=== PATIENT | male | born 1995 | race Caucasian/White ===

== ENCOUNTER 2017-05-05 08:19 | Day surgery (SDC) | payer OTHER ==
[2017-05-05 08:50] VITALS: BMI 27.6
[2017-05-05] MEDS ORDERED: DEXAMETHASONE SOD PHOSPHATE/PF 10 MG/ML SDV ONE (09:04)
[2017-05-05] MEDS ORDERED: MIDAZOLAM HCL 2 MG/2 ML SINGLE DOSE VIAL ONE (09:04)
[2017-05-05] MEDS ORDERED: BUPIVACAINE HCL/PF (5 MG/ML) 30 ML VIAL IJ ONE (09:04)
[2017-05-05] MEDS ORDERED: ROPIVACAINE HCL 0.5% 30ML VIAL ONE (09:05)
[2017-05-05] MEDS ORDERED: ceFAZolin SODIUM 1 GM VIAL ONE (09:24)
[2017-05-05] MEDS ORDERED: DEXAMETHASONE SOD PHOSPHATE 4 MG/1 ML VIAL ONE (09:24)
[2017-05-05] MEDS ORDERED: LIDOCAINE HCL/PF 2% SDV 5ML VIAL ONE (09:24)
[2017-05-05] MEDS ORDERED: PROPOFOL 20 ML ONE ×2 (09:24)
[2017-05-05] MEDS ORDERED: ONDANSETRON 4 MG/2 ML VIAL ONE (09:24)
[2017-05-05] MEDS ORDERED: SUCCINYLCHOLINE CHLORIDE 200 MG/10 ML VIAL ONE (09:24)
[2017-05-05] MEDS ORDERED: EPINEPHrine 1:1,000 1 MG/1 ML - 30ML VIAL (INJECTION) ONE (11:16)
[2017-05-05] MEDS ORDERED: ONDANSETRON 4 MG/2 ML VIAL IVPUSH PRN (12:41)
[2017-05-05] MEDS ORDERED: oxyCODONE HCL 5 MG TABLET PO PRN ×2 (12:41)
[2017-05-05] MEDS ORDERED: PROMETHAZINE HCL 25 MG/1 ML VIAL IVPUSH PRN (12:41)
[2017-05-05] MEDS ORDERED: LACTATED RINGERS SOLUTION 1,000 ML IV SCH (12:45)
[2017-05-05 16:10] VITALS: TEMP 98
[2017-05-05 16:22] VITALS: BP 121/77; PULSE 85
--- NOTE | 2017-05-05 16:24 | OP ---
Operative Note - Note: Operative Date: 05/05/17 Pre-Operative Diagnosis: Right Anterior cruciate ligament tear Operation: Right Arthroscopic Anterior cruciate ligament reconstruction with hamstring autograft Implants: tight rope and endo button Post-Operative Diagnosis: Same as Pre-op Surgeon: Kristopher Saavedra Document Management Technician: Marilu Costello Anesthesiologist/SHIPSMITH: Primitivo Davis Anesthesia: General, MAC (with block) Estimated Blood Loss (mls): 50 Fluid Volume Replaced (mls): 1,200 Operative Report Dictated: Yes
--- NOTE | 2017-05-05 16:27 | SURG ---
Surgery Zigzag Tunnel Elastic Operator Note Zigzag Tunnel Elastic Operator: Marilu Costello PA-C Date of Service: 05/05/17 Diagnosis: Right Anterior cruciate ligament tear Procedure: Right Arthoscopic Anterior Ligament reconstruction with hamstring autograft I was present for the entirety of the operative procedure. For further detail, please refer to operative report. Visit type - Case Type Case Type: Scheduled Admission - Emergency Emergency Visit: No - New patient This patient is new to me today: Yes Date on this admission: 05/05/17 - Critical Care Critical Care patient: No
--- NOTE | 2017-05-05 16:53 | OP ---
DATE OF OPERATION: 05/05/2017 PREOPERATIVE DIAGNOSIS: Right knee anterior cruciate ligament rupture. POSTOPERATIVE DIAGNOSIS: Right knee anterior cruciate ligament rupture plus lateral meniscal tear. SURGEON: Kristopher Saavedra MD DISPLAY FABRICATOR: JUNIOR Barraza whose skillful assistance was necessary for the safe and timely performance of the procedure. Ms. Costello is a physician's boiler assistant operator. She was able to help with limb positioning, graft preparation, driving the camera, as well as the insertion of our orthopedic graft fixation hardware. ANESTHESIA: General plus regional. CONDITION: Postoperative condition stable. COMPLICATIONS: None. IMPLANTS: Arthrex TightRopes x2. INDICATIONS: This is a pleasant young gentleman who suffered an ACL rupture. Treatment options, including nonoperative versus operative management, were discussed. Operative risks were reviewed in detail, including bleeding, infection, neurovascular injury, need for further surgery, postoperative pain and stiffness, re-rupture, persistent instability, need for further surgery. We discussed medical risks, such as heart attack, stroke, DVT, PE and . We reviewed the postoperative rehabilitation protocol. We discussed DVT prophylaxis as well as antibiotic prophylaxis. I addressed all of the patient's questions and concerns, as well as his family's. They voiced understanding and elected to proceed. DESCRIPTION OF PROCEDURE: The patient was brought to the operating room, where general anesthesia was administered. He previously had been given a regional block in the preoperative holding area. The right lower extremity was then prepped and draped in the usual sterile fashion. A preoperative dose of antibiotics was given, and the usual time-out procedure was performed. Preoperative examination of his knee demonstrated a positive Mamie and positive pivot shift. In addition, there was noted to be some gapping of the lateral collateral ligament on stress testing. However, it had a firm endpoint. Gapping was borderline 1+ to 2+. In addition, there was mildly increased external rotation at 30 degrees of flexion. This was indicative of a partial posterolateral corner injury. The hamstring harvest was now initiated. An incision was planned out over the pes tendons. This was carried down through the skin and subcutaneous tissue. Blunt spreading to explore the sartorius fascia. Electrocautery was used to maintain hemostasis. The fascia was now split in line with the semitendinosus. A right-angle clamp was now used to retrieve the semitendinosus and it was stitched. A 15 blade was then used to elevate the semitendinosus off of the anterior surface of the tibia. The tendon was now finger dissected out from the surrounding soft tissue. Multiple bands to the gastrocnemius were released. The tendon stripper was now passed over the tendon and it was retrieved out of the body. The tendon was now prepared on the back table. Graft length was 290 mm. Graft diameter quadrupled was approximately 9 to 10 mm. The decision was made to perform a single tendon graft preparation. At this point the arthroscopic portals were marked out on the knee. The lateral portal was established using an 11 blade. The arthroscope was then passed into the knee. A diagnostic arthroscopy was performed. Examination of the patellofemoral joint demonstrated no lesions. Passing the arthroscope down to the notch demonstrated the ruptured ACL. The PCL was visualized to be intact. The arthroscope was now passed into the medial compartment. Here, under spinal needle localization, a medial portal was established. A probe was now passed and the medial compartment was examined. There were no meniscal tears seen. There were no articular cartilage lesions. The arthroscope was now passed into the lateral compartment. Here, there was a tear seen at the posterior horn of the body, extending up . Utilizing a meniscal biter and a shaver, this was debrided down to a stable base. No articular lesions were seen here. The arthroscope was now passed into the notch. Here, electrocautery as well as a shaver were used to debride the ACL remnant. At this point, with the graft completed, it was now 70 mm by 9.5. A femoral drill guide was inserted into the notch. It was positioned onto the lateral bifurcate ridge. A small incision was made distally in the femur and the trocar was passed down to the bone after blunt spreading, utilizing a curved clamp. The FlipCutter was now drilled into the knee. Positioning was verified and was satisfactory. The FlipCutter was now removed, the suture was passed and the drilling hardware was removed from the knee. Attention was now turned to the tibial side. Here, the drill guide was again inserted into the anatomic footprint of the ACL. Utilizing the incision from the hamstring harvest, the trocar was passed down into the bone. Again, the FlipCutter was drilled in, position was verified, and then a socket was created here as well. The femoral socket final size was 35 x 9.5 mm. The tibial socket was also 35 x 9.5 mm. The passing suture was now passed into the tibial side. Both sutures were now retrieved out through an enlarged lateral portal. The graft was now passed into the knee, passing the TightRope and button under direct visualization through the femoral socket to seat on the lateral femoral cortex. The graft was then toggled in by 20 mm. The tibial sutures were now passed and the graft was seated into the tibial socket. The knee was cycled now. The button was loaded onto the tibial side of the graft. The knee was positioned in 20 degrees of flexion. A posterior drawer was applied, and the TightRope was toggled down onto the tibial surface on the tibial side. The knee was now examined with a Mamie maneuver. It was now negative. The extra sutures were now tied and then cut. The toggling sutures were removed as well. The deep tissues were approximated using 0 Vicryl. The subcutaneous tissue was approximated using 2-0 Vicryl. The skin was closed using 3-0 nylon. Sterile dressings were placed. The tourniquet was let down after 93 minutes. The patient was extubated and transferred to the recovery room in stable condition. вИан [id number]
== END 2017-05-05 14:30 | disposition home or self-care (01) ==
LOC: FASU 08:19
PROVIDERS: ATTEND Orthopaedic Surgery Sports Medicine
PROC: 0LBN0ZZ Excision of Right Lower Leg Tendon, Open Approach (ICD-10-PCS; 2017-05-05)
PROC: 0SBC4ZZ Excision of Right Knee Joint, Percutaneous Endoscopic Approach (ICD-10-PCS; 2017-05-05)
PROC: 0MUN47Z Supplement Right Knee Bursa and Ligament with Autologous Tissue Substitute, Percutaneous Endoscopic Approach (ICD-10-PCS; principal; 2017-05-05 10:04)
DX: S83.281A Other tear of lateral meniscus, current injury, right knee, initial encounter (principal); S83.511A Sprain of anterior cruciate ligament of right knee, initial encounter; X58.XXXA Exposure to other specified factors, initial encounter; Y93.9 Activity, unspecified; Y92.9 Unspecified place or not applicable
CPT/HCPCS: 94760